=== PATIENT | male | born 1950 | race Caucasian/White ===

== ENCOUNTER 2019-08-24 09:45 | Emergency (ER) | payer MEDICARE ==
[~2019-08-24] VITALS: Ht 167.6 cm; Wt 83.0 kg
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
--- NOTE | 2019-08-24 10:03 | NUR ---
AT BEDSIDE FOR EVAL
--- NOTE | 2019-08-24 10:09 | NUR ---
URINE COLLECTED AND SENT TO LAB
[2019-08-24] MEDS ORDERED: ACETAMINOPHEN ES 500 MG TABLET ONE (10:18)
[2019-08-24] MEDS ORDERED: ACETAMINOPHEN ES 500 MG TABLET PO ONE (10:30)
--- NOTE | 2019-08-24 10:32 | NUR ---
BLOOD DRAWN AND SENT TO LAB
[2019-08-24 10:36] LABS: BASOPHILS % (AUTO) 0.8 % (0.0-2.0); EOSINOPHILS % (AUTO) 2.6 % (0.0-6.0); HEMATOCRIT 43 % (39-51); HEMOGLOBIN 14.9 g/dL (13.5-17.5); LYMPHOCYTES # (AUTO) 1.4 /CMM (0.8-4.8); LYMPHOCYTES % (AUTO) 27.7 % (20.0-44.0); MEAN CORPUSCULAR HGB CONC 34 g/dl (31.0-36.0); MEAN CORPUSCULAR VOLUME 97 fL (80-96); MONOCYTES # (AUTO) 0.4 /CMM (0.1-1.30); MONOCYTES % (AUTO) 8.5 % (2.0-12.0); NEUTROPHILS % (AUTO) 60.4 % (43.0-81.0); PLATELET COUNT (AUTO) 238 /CMM (150-450); RED BLOOD CELL COUNT(AUTO) 4.47 MIL/uL (4.5-6.0)
[2019-08-24 10:44] LABS: CALCIUM, SERUM 9.2 mg/dL (8.5-10.1); CREATININE 0.8 mg/dL (0.6-1.3); POTASSIUM 3.3 mmol/L (3.5-5.1)
[2019-08-24 10:49] LABS: APPEARANCE,URINE Clear (CLEAR); BILIRUBIN,URINE Negative (NEGATIVE); BLOOD, URINE Trace-intact Ery/uL (NEGATIVE); COLOR,URINE Yellow (YELLOW); KETONES,URINE Negative (NEGATIVE); LEUKOCYTE ESTERASE ,URINE Negative (NEGATIVE); NITRITE, URINE Negative (NEGATIVE); PROTEIN,URINE Negative (NEGATIVE); UGLUCOSE Negative (NEGATIVE); UROBILINOGEN,URINE 0.2 EU/dL (0.2)
[2019-08-24 10:51] LABS: BACTERIA,URINE None seen /HPF (None Seen); RBC,URINE 0-2 /HPF (0-2); SQUAMOUS EPITHELIAL CELL,UR None Seen /HPF (None Seen); WBC,URINE 0-2 /HPF (0-3)
[2019-08-24] MEDS ORDERED: CT SWABBABLE VALVE TRANS SET 1 EA INFUS.SET MC ONE (11:06)
[2019-08-24] MEDS ORDERED: IOHEXOL-300 100 ML VIAL IV ONE ×2 (11:06→11:09)
[2019-08-24] MEDS ORDERED: IV NS 0.9% 250 ML IV ONE (11:06)
[2019-08-24] MEDS ORDERED: POTASSIUM CHLORIDE 20 MEQ TAB.PRT.SR PO ONE ×2 (12:30→12:35)
[2019-08-24 13:03] VITALS: BP 132/76
--- NOTE | 2019-08-24 13:04 | NUR ---
Patient discharged to home in stable condition. Written and verbal after care instructions given. Patient verbalizes understanding of instruction.
== END 2019-08-24 13:04 | disposition home or self-care (01) ==
LOC: ER 09:49
DX: S20.212A Contusion of left front wall of thorax, initial encounter (principal); S40.022A Contusion of left upper arm, initial encounter; E87.6 Hypokalemia; I10 Essential (primary) hypertension; E78.5 Hyperlipidemia, unspecified; Z98.890 Other specified postprocedural states; Z96.659 Presence of unspecified artificial knee joint; V49.49XA Driver injured in collision with other motor vehicles in traffic accident, initial encounter; Y93.89 Activity, other specified; Y92.488 Other paved roadways as the place of occurrence of the external cause; Y99.8 Other external cause status
CPT/HCPCS: 36415; 71100; 73060; 74177; 80048; 81001; 85025; 99284; J7050; Q9967 ×2; 81000-TC